=== PATIENT | female | born 1965 | race Caucasian/White ===

== ENCOUNTER 2022-07-31 08:16 | Emergency (ER) | payer OTHER ==
[~2022-07-31] VITALS: Ht 157.5 cm; Wt 68.9 kg
[2022-07-31] MEDS ORDERED: ADDERALL XR 1010 M1 (08:48)
[2022-07-31] MEDS ORDERED: ELIQUIS5 MG PO (08:48)
== END 2022-07-31 12:34 | disposition home or self-care (01) ==
LOC: ER 08:16
DX: I87.2 Venous insufficiency (chronic) (peripheral) (principal)